=== PATIENT | female | born 1955 | race Caucasian/White ===

== ENCOUNTER → 2018-01-03 | Outpatient (CLI) | payer OTHER | LOC: RAD 16:38 | DX: I08.1 Rheumatic disorders of both mitral and tricuspid valves (principal); I27.0 Primary pulmonary hypertension ==

== ENCOUNTER → 2023-12-31 | Outpatient (CLI) | payer MEDICARE, OTHER | LOC: RAD 12:58 | DX: M25.552 Pain in left hip (principal) ==